=== PATIENT | male | born 1990 | race Caucasian/White ===

== ENCOUNTER → 2025-06-26 | Outpatient (CLI) | payer OTHER, SELFPAY ==
--- NOTE | 2025-06-26 13:14 | RAD_ITS ---
PROCEDURE: FOOT MIN 3 VIEWS 06/26/2025 REASON FOR EXAM: PAIN TECHNIQUE: Left foot three views COMPARISON: None FINDINGS: There is no fracture or dislocation identified. The joint spaces are maintained. Mineralization is normal. There is no focal soft tissue abnormality or visible radiopaque foreign body. There is no visible atherosclerosis. RAD/Foot min 3 Views IMPRESSION: No fracture or dislocation is identified. Reading Location: [facility]
== END | disposition home or self-care (01) ==
LOC: MTRAD 13:14
PROVIDERS: PCP Family Medicine; Referring Provider Physician Assistant; Visit Provider Physician Assistant
DX: M79.672 Pain in left foot (principal)
CPT/HCPCS: 73630